=== PATIENT | female | born 1985 | race Caucasian/White ===

== ENCOUNTER 2021-03-05 15:50 | Emergency (ER) | payer OTHER, SELFPAY ==
[2021-03-05 15:54] VITALS: PULSE 95; RESP 22; TEMP 36.6; O2SAT 100
[2021-03-05] MEDS: ONDANSETRON 4 MG ODT SL (16:31)
[2021-03-05 16:46] LABS: Add Manual Diff / Slide Review NO; Basophils Absolute Auto 0 /uL (0-100); Basophils Percent Auto 0.7 % (0-2); Eosinophils Absolute Auto 100 /uL (0-450); Eosinophils Percent Auto 1.3 % (2-4); Hematocrit 39.9 % (36-46); Hemoglobin 13.2 g/dL (12.0-16.0); Lymphocytes Absolute Auto 1300 /uL (1100-4500); Lymphocytes Percent Auto 19.7 % (25-40); Mean Corpuscular HGB Conc 33.1 % (30-36); Mean Corpuscular Hemoglobin 29.9 PG (26-34); Mean Corpuscular Volume 90.2 fL (80-100); Monocytes Absolute Auto 600 /uL (0-900); Monocytes Percent Auto 8.8 % (3-14); Neutrophils Absolute Auto 4500 /uL (1500-7000); Neutrophils Percent Auto 69.5 % (50-75); Platelet Count 327 X10^3/uL (150-400); Red Blood Cell Count 4.42 X10^6/uL (4.0-5.2); Red Cell Distribution Width 13.1 % (11.6-14.8); White Blood Cell Count 6.4 X10^3/uL (4.5-11.0)
--- NOTE | 2021-03-05 16:53 | DI.CT.S_ITS ---
PROCEDURE: CT ABDOMEN PELVIS W CON INDICATIONS: RUQ, LUQ pain, N/V/D TECHNIQUE: After the administration of intravenous contrast, axial sections acquired from the lung bases to the pubic symphysis. Coronal and sagittal reformats were performed. For radiation dose reduction, the following was used: automated exposure control, adjustment of mA and/or kV according to patient size. COMPARISON: None. FINDINGS: Image quality: Excellent. Lung bases: Lung bases are clear. Heart: No significant findings. ABDOMEN: Liver: Unremarkable. Gallbladder: Unremarkable. Biliary ducts: Unremarkable. Pancreas: Unremarkable. Spleen: Unremarkable. Adrenal Glands: Unremarkable. Kidneys and Ureters: Kidneys are symmetric in size and enhancement, and there is no obstructive uropathy. No perinephric inflammatory changes. Ureters are normal in course and caliber. Stomach and Bowel: Stomach appears unremarkable. There is diffuse, mild circumferential wall thickening of the entire colon which is filled with fluid and fecal material. Mild pericolonic inflammation predominantly in the distal sigmoid colon. Multiple fluid-filled loops of small bowel seen throughout the abdomen most pronounced in the left upper abdomen. No suspicious wall thickening of the small bowel. Nonobstructive bowel gas pattern. The appendix is filled with fluid but otherwise normal in caliber. Peritoneum: Scattered free fluid in the lower abdomen and pelvis. No organized fluid collection seen. Ventral Wall: No hernia. Abdominal Nodes: Multiple retroperitoneal and mesenteric lymph nodes which are more notable for number rather than size and likely reactive in etiology. Vessels: Aorta and inferior vena cava are normal in size. PELVIS: Pelvic Organs: Unremarkable. Bladder: Unremarkable. Pelvic Nodes: No enlarged lymph nodes. Miscellaneous: No inguinal hernias are seen. Bones: Unremarkable. IMPRESSION: 1. Nonobstructive bowel gas pattern with mild circumferential wall thickening of the entire colon and mild pericolonic inflammatory stranding of the distal sigmoid colon. There is also a long segment of fluid-filled small bowel with minimal wall prominence in the left upper quadrant. Findings may represent enteritis/colitis secondary to infectious/inflammatory process. Small amount of reactive pelvic free fluid. 2. Multiple scattered retroperitoneal and mesenteric lymph nodes, likely reactive in etiology. Dictated by: Ildefonso Colbert M.D. on 03/05/2021 at 18:53 Approved by: Ildefonso Colbert M.D. on 03/05/2021 at 19:02
--- NOTE | 2021-03-05 16:56 | DI.US.S_ITS ---
PROCEDURE: US ABDOMEN COMPLETE INDICATIONS: RIGHT AND LEFT UPPER QUADRANT PAIN TECHNIQUE: Real-time scanning was performed of the abdominal and retroperitoneal organs, with image documentation. COMPARISON: [facility], US, ABDOMEN COMPLETE, 07/12/2010, 9:32. FINDINGS: Liver: Liver is normal in size and homogeneous in echotexture. Gallbladder: Sonolucent without evidence cholelithiasis, gallbladder wall thickening or pericholecystic fluid. No sonographic Bronson sign. Biliary ducts: Intrahepatic bile ducts are non-dilated. Extrahepatic bile duct caliber measures 4 mm. Normal is 6-7 mm or less in diameter, or 10 mm or less post-cholecystectomy. Pancreas: Visualized portions of the pancreas are sonographically normal. Spleen: Spleen is normal in size and homogeneous in echotexture. Kidneys: Kidneys are normal in size and echotexture. Right kidney measures 12.3 cm long; left kidney measures 12.0 cm long. No hydronephrosis or nephrolithiasis. No solid masses. Aorta: Visualized aorta is normal in caliber at less than 3 cm. Iliacs: Proximal common iliac arteries are normal in caliber at less than 2.5 cm. IVC: Intrahepatic inferior vena cava is patent. Miscellaneous: No free abdominal fluid. IMPRESSION: Normal ultrasound the abdomen Approved by: Donte Banuelos M.D. on 03/05/2021 at 18:46
[2021-03-05 17:02] VITALS: BP 116/65; PULSE 89; RESP 18; O2SAT 100
--- NOTE | 2021-03-05 17:11 | ED.ABDPAIN ---
HPI - Abdominal Pain <Mike Trinh PA-C - Last Filed: 03/12/21 09:08> General Chief Complaint: Abdominal Pain Stated Complaint: STOMACH ACHE DIARRHEA HEADACHE Time Seen by Provider: 03/05/21 16:08 Source: patient Mode of arrival: Ambulatory History of Present Illness HPI narrative: 35-year-old female with past medical history hiatal hernia, Baptiste's esophagus, status post partial hysterectomy presents to the ED with 3 days of upper abdominal pain, nausea, vomiting, diarrhea. Patient states she has had 3 episodes of vomiting thus far, able to tolerate fluids, but is feeling lightheaded. Endorses upper abdominal pain, nausea, diarrhea. Denies hematochezia, melena, hematemesis, coffee-ground emesis. Denies dysuria. Patient denies fever, endorses chills. Denies chest pain, shortness of breath. Related Data Home Medications Medication Instructions Recorded Confirmed Ethinyl Estradiol/Norgestima 1 tab PO Q DAY #0 03/19/11 (ORTHO TRI-CYCLEN LO) Previous Rx's Medication Instructions Recorded ondansetron HCl 4 mg tablet 4 mg PO Q8H PRN #7 tab 03/05/21 (Zofran) Allergies Allergy/AdvReac Type Severity Reaction Status Date / Time No Known Drug Allergies Allergy Verified 03/05/21 16:29 Review of Systems <Mike Trinh PA-C - Last Filed: 03/12/21 09:08> Constitutional Constitutional: Denies chills, Denies fatigue, Denies fever(s), Denies frequent falls, Denies lethargy, Reports poor appetite and Denies weakness Eyes Eyes: Denies change in vision, Denies eye discharge, Denies irritation and Denies loss of vision ENT Ears, Nose, Mouth, and Throat: Denies change in voice, Denies dizziness, Denies neck pain, Denies sore throat and Denies throat swelling Cardiovascular Cardiovascular: Denies chest pain, Denies irregular heart rhythm, Denies lightheadedness, Denies palpitations, Denies dyspnea, Denies dyspnea on exertion and Denies orthopnea Respiratory Respiratory: Denies cough, Denies dyspnea, Denies dyspnea on exertion and Denies wheezing Gastrointestinal Gastrointestinal: Reports abdominal pain, Denies change in bowel habits, Denies diarrhea, Reports nausea and Reports vomiting Musculoskeletal Musculoskeletal: Denies neck pain and Denies numbness Integumentary/Breasts Skin/Breast: Denies pruritus, Denies erythema, Denies rash and Denies wounds Neurologic Neurologic: Denies behavioral changes, Denies confusion, Denies dizziness, Denies frequent falls, Denies loss of vision, Denies numbness and Denies weakness Psychiatric Psychiatric: Denies anxiety, Denies behavioral changes, Denies confusion, Denies depression, Denies homicidal ideation and Denies suicidal ideation Endocrine Endocrine: Denies fatigue, Denies flushing and Denies palpitations Hematologic/Lymphatic Hematologic/Lymphatic: Denies easy bruising Allergic/Immunologic Allergic/Immunologic: Denies urticaria, Denies throat swelling and Denies wheezing Patient History <Mike Trinh PA-C - Last Filed: 03/12/21 09:08> Social History Smoking Status: Current every day smoker Smoking Status: Current every day smoker tobacco type: vaping alcohol intake frequency: holidays/special occasions only Exam <Mike Trinh PA-C - Last Filed: 03/12/21 09:08> Initial Vital Signs Initial Vital Signs: Vital Signs Temperature 97.8 F 03/05/21 15:54 Pulse Rate 95 H 03/05/21 15:54 Respiratory Rate 22 03/05/21 15:54 Pulse Oximetry 100 03/05/21 15:54 Const General: cooperative HENMT Head: normocephalic and atraumatic Ears: external ears normal and TM's normal bilaterally Nose: external nose normal and No nasal discharge Face and sinus: sinuses nontender, face symmetric, no sinus tenderness and No dry mucous membranes Mouth: oral mucosae normal and moist mucous membranes Teeth and gingiva: dentition normal Throat: tonsils normal and uvula midline Eyes General: appearance normal, both eyes and all related structures Eyelids: eyelids normal Conjunctivae: conjunctivae normal Sclera: sclerae normal Pupils: PERRL EOM: EOM intact bilaterally Neck Neck: normal visual inspection, trachea midline, No lymphadenopathy, No midline deformity and No JVD Lymphatic: No lymphedema Chest Chest: normal inspection of the chest Resp Effort & Inspection: normal respiratory effort, able to speak in complete sentences, no respiratory distress and no use of accessory muscles Auscultation: clear to auscultation bilaterally, no rales, no rhonchi and no wheezes Cardio Rate: regular rate Rhythm: regular rhythm Heart Sounds: no click, no gallops, no murmurs and no rubs Pulses: normal peripheral pulses GI Inspection: non-distended Palpation: soft, no hepatosplenomegaly, No guarding and No pulsatile mass Auscultation: normal bowel sounds Other: Abdomen soft, non-distended. TTP on RUQ, LUQ. No rebound, gaurding Back/Spine/Pelvis Back: No CVA tenderness Cervical Spine: cervical ROM normal and No pain with cervical ROM Thoracic/Lumbar Spine: thoracic and lumbar spine normal to inspection Skin General: no rashes or lesions noted, No jaundice and No petechiae Neuro General: patient alert, patient oriented x3, gait normal and no focal motor deficits Speech: speech normal Extrem General: full ROM, no clubbing, cyanosis or edema, no pedal edema and no calf tenderness Psych Appearance: well kempt Mental Status: mental status grossly normal Attitude: cooperative Thought Content: normal and suicidality Judgment: judgment good <Angelica Delong DO - Last Filed: 03/16/21 21:50> Initial Vital Signs Initial Vital Signs: Vital Signs Temperature 97.8 F 03/05/21 15:54 Pulse Rate 95 H 03/05/21 15:54 Respiratory Rate 22 03/05/21 15:54 Pulse Oximetry 100 03/05/21 15:54 Course <Mike Trinh PA-C - Last Filed: 03/12/21 09:08> Course Course Narrative: labs within normal limits. Ultrasound abdomen negative for acute findings. CT abdomen pelvis with findings of generalized enteritis, colitis, likely secondary to diarrhea. Patient's symptoms improved with Zofran, Toradol, IVF. Will discharge home with ED return precautions, PCP follow-up. Orders Ordered: Discontinued Medications Al Hydrox/Mg Hydrox/Simethicone 20 ml/ Lidocaine HCl 15 ml 0 ml PO NOW ONE Stop: 03/05/21 16:58 Last Admin: 03/05/21 17:34 Dose: 35 ml Documented by: HIRO Famotidine (Famotidine 20 Mg/2 Ml Vial) 20 mg IV NOW ASNTY Sodium Chloride (Normal Saline 0.9%) 1,000 mls @ 1,000 mls/hr IV BOLUS ONE Stop: 03/05/21 17:53 Last Infusion: 03/05/21 18:32 Dose: 0 mls/hr Documented by: Admin: 03/05/21 17:33 Dose: 1,000 mls/hr Documented by: HIRO Ketorolac Tromethamine (Ketorolac 30 Mg/Ml Vial) 15 mg IV NOW ONE Stop: 03/05/21 16:56 Last Admin: 03/05/21 17:34 Dose: 15 mg Documented by: HIRO Ondansetron HCl (Ondansetron 4 Mg Odt) 4 mg SL NOW ONE Stop: 03/05/21 16:29 Last Admin: 03/05/21 16:31 Dose: 4 mg Documented by: HIRO Vital Signs Vital signs: Vital Signs - 8 hr 03/05/21 15:54 03/05/21 17:02 Temperature 97.8 F Pulse Rate 95 H 89 Respiratory Rate 22 18 Blood Pressure 116/65 Pulse Oximetry 100 100 <Angelica Delong DO - Last Filed: 03/16/21 21:50> Orders Ordered: Discontinued Medications Al Hydrox/Mg Hydrox/Simethicone 20 ml/ Lidocaine HCl 15 ml 0 ml PO NOW ONE Stop: 03/05/21 16:58 Last Admin: 03/05/21 17:34 Dose: 35 ml Documented by: HIRO Famotidine (Famotidine 20 Mg/2 Ml Vial) 20 mg IV NOW SANTY Sodium Chloride (Normal Saline 0.9%) 1,000 mls @ 1,000 mls/hr IV BOLUS ONE Stop: 03/05/21 17:53 Last Infusion: 03/05/21 18:32 Dose: 0 mls/hr Documented by: Admin: 03/05/21 17:33 Dose: 1,000 mls/hr Documented by: HIRO Ketorolac Tromethamine (Ketorolac 30 Mg/Ml Vial) 15 mg IV NOW ONE Stop: 03/05/21 16:56 Last Admin: 03/05/21 17:34 Dose: 15 mg Documented by: HIRO Ondansetron HCl (Ondansetron 4 Mg Odt) 4 mg SL NOW ONE Stop: 03/05/21 16:29 Last Admin: 03/05/21 16:31 Dose: 4 mg Documented by: HIRO Vital Signs Vital signs: Vital Signs - 8 hr 03/05/21 15:54 03/05/21 17:02 Temperature 97.8 F Pulse Rate 95 H 89 Respiratory Rate 22 18 Blood Pressure 116/65 Pulse Oximetry 100 100 MDM - Abdominal Pain <Hyma CLIF Trinh - Last Filed: 03/12/21 09:08> Lab Data Lab results narrative: Labs within normal limits Result diagrams: 03/05/21 16:25 03/05/21 16:25 Labs: Lab Results 03/05/21 03/05/21 03/05/21 Range/Units 16:25 16:25 17:23 WBC 6.4 (4.5-11.0) X10^3/uL RBC 4.42 (4.0-5.2) X10^6/uL Hgb 13.2 (12.0-16.0) g/dL Hct 39.9 (36-46) % MCV 90.2 (80-100) fL MCH 29.9 (26-34) PG MCHC 33.1 (30-36) % RDW 13.1 (11.6-14.8) % Plt Count 327 (150-400) X10^3/uL Neut % (Auto) 69.5 (50-75) % Lymph % (Auto) 19.7 L (25-40) % [place] % (Auto) 8.8 (3-14) % Eos % (Auto) 1.3 L (2-4) % Baso % (Auto) 0.7 (0-2) % Neut # (Auto) 4500 (0789-3779) /uL Lymph # (Auto) 1300 (7263-2481) /uL [place] # (Auto) 600 (0-900) /uL Eos # (Auto) 100 (0-450) /uL Baso # (Auto) 0 (0-100) /uL Sodium 138 (137-145) mmol/L Potassium 3.3 L (3.4-5.1) mmol/L Chloride 100 (98-107) mmol/L Carbon Dioxide 28 (22-32) mmol/L BUN 7 (7-17) mg/dL Creatinine 0.60 (0.52-1.04) mg/dL Estimated GFR > 60.0 (>60) mL/min BUN/Creatinine Ratio 11.7 (6-22) Glucose 86 (70-100) mg/dL Calcium 9.1 (8.4-10.2) mg/dL Total Bilirubin 0.3 (0.2-1.3) mg/dL AST 26 (14-36) IU/L ALT 21 (<35) IU/L Alkaline Phosphatase 62 (38-126) U/L Total Protein 6.9 (6.3-8.2) g/dL Albumin 4.2 (3.5-5.0) g/dL Globulin 2.7 (1.7-4.1) g/dL Albumin/Globulin Ratio 1.6 (1.0-2.8) Lipase 43 (23-300) U/L Urine RBC (0-5/HPF) Urine WBC (0-5/HPF) Ur Squamous Epith Cells (0-5/HPF) Ur Transition Epith Cell (0-5/HPF) Urine Bacteria (None) Urine Mucus (Negative) Ur Culture Indicated? Urine Test Negative (Negative) 03/05/21 Range/Units 17:23 WBC (4.5-11.0) X10^3/uL RBC (4.0-5.2) X10^6/uL Hgb (12.0-16.0) g/dL Hct (36-46) % MCV (80-100) fL MCH (26-34) PG MCHC (30-36) % RDW (11.6-14.8) % Plt Count (150-400) X10^3/uL Neut % (Auto) (50-75) % Lymph % (Auto) (25-40) % [place] % (Auto) (3-14) % Eos % (Auto) (2-4) % Baso % (Auto) (0-2) % Neut # (Auto) (8837-9446) /uL Lymph # (Auto) (3812-2863) /uL [place] # (Auto) (0-900) /uL Eos # (Auto) (0-450) /uL Baso # (Auto) (0-100) /uL Sodium (137-145) mmol/L Potassium (3.4-5.1) mmol/L Chloride (98-107) mmol/L Carbon Dioxide (22-32) mmol/L BUN (7-17) mg/dL Creatinine (0.52-1.04) mg/dL Estimated GFR (>60) mL/min BUN/Creatinine Ratio (6-22) Glucose (70-100) mg/dL Calcium (8.4-10.2) mg/dL Total Bilirubin (0.2-1.3) mg/dL AST (14-36) IU/L ALT (<35) IU/L Alkaline Phosphatase (38-126) U/L Total Protein (6.3-8.2) g/dL Albumin (3.5-5.0) g/dL Globulin (1.7-4.1) g/dL Albumin/Globulin Ratio (1.0-2.8) Lipase (23-300) U/L Urine RBC 10-30/hpf H (0-5/HPF) Urine WBC 1-5/hpf (0-5/HPF) Ur Squamous Epith Cells 1-5 /hpf (0-5/HPF) Ur Transition Epith Cell 1-5/hpf (0-5/HPF) Urine Bacteria Moderate (10-30) H (None) Urine Mucus 2+ H (Negative) Ur Culture Indicated? Specimen cultured Urine Test (Negative) Point of care testing: Urine Dip Bedside Urine Glucose Negative Bedside Urine Bilirubin - Negative Bedside Urine Ketone +++ 80 Urine Specific [place] 1.025 Bedside Urine Occult Blood +++ Bedside Urine pH 6.0 Bedside Urine Protein + 30 Bedside Urine Urobilinogen - Negative Bedside Urine Nitrite - Negative Bedside Urine Leukocytes - Negative Esterase Imaging Data CT scan - abdomen/pelvis: Radiologist's Impression: PROCEDURE: CT ABDOMEN PELVIS W CON INDICATIONS: RUQ, LUQ pain, N/V/D TECHNIQUE: After the administration of intravenous contrast, axial sections acquired from the lung bases to the pubic symphysis. Coronal and sagittal reformats were performed. For radiation dose reduction, the following was used: automated exposure control, adjustment of mA and/or kV according to patient size. COMPARISON: None. FINDINGS: Image quality: Excellent. Lung bases: Lung bases are clear. Heart: No significant findings. ABDOMEN: Liver: Unremarkable. Gallbladder: Unremarkable. Biliary ducts: Unremarkable. Pancreas: Unremarkable. Spleen: Unremarkable. Adrenal Glands: Unremarkable. Kidneys and Ureters: Kidneys are symmetric in size and enhancement, and there is no obstructive uropathy. No perinephric inflammatory changes. Ureters are normal in course and caliber. Stomach and Bowel: Stomach appears unremarkable. There is diffuse, mild circumferential wall thickening of the entire colon which is filled with fluid and fecal material. Mild pericolonic inflammation predominantly in the distal sigmoid colon. Multiple fluid-filled loops of small bowel seen throughout the abdomen most pronounced in the left upper abdomen. No suspicious wall thickening of the small bowel. Nonobstructive bowel gas pattern. The appendix is filled with fluid but otherwise normal in caliber. Peritoneum: Scattered free fluid in the lower abdomen and pelvis. No organized fluid collection seen. Ventral Wall: No hernia. Abdominal Nodes: Multiple retroperitoneal and mesenteric lymph nodes which are more notable for number rather than size and likely reactive in etiology. Vessels: Aorta and inferior vena cava are normal in size. PELVIS: Pelvic Organs: Unremarkable. Bladder: Unremarkable. Pelvic Nodes: No enlarged lymph nodes. Miscellaneous: No inguinal hernias are seen. Bones: Unremarkable. IMPRESSION: 1. Nonobstructive bowel gas pattern with mild circumferential wall thickening of the entire colon and mild pericolonic inflammatory stranding of the distal sigmoid colon. There is also a long segment of fluid-filled small bowel with minimal wall prominence in the left upper quadrant. Findings may represent enteritis/colitis secondary to infectious/inflammatory process. Small amount of reactive pelvic free fluid. 2. Multiple scattered retroperitoneal and mesenteric lymph nodes, likely reactive in etiology. Dictated by: Ildefonso Colbert M.D. on 03/05/2021 at 18:53 Approved by: Ildefonso Colbert M.D. on 03/05/2021 at 19:02 US - abdomen: Radiologist's Impression: PROCEDURE:? US ABDOMEN COMPLETE ? INDICATIONS:? RIGHT AND LEFT UPPER QUADRANT PAIN ? TECHNIQUE:? Real-time scanning was performed of the abdominal and retroperitoneal organs, with image documentation.? ? COMPARISON:? [facility], , ABDOMEN COMPLETE, 07/12/2010, 9:32. ? FINDINGS:? ? Liver:? Liver is normal in size and homogeneous in echotexture.? ? Gallbladder:? Sonolucent without evidence cholelithiasis, gallbladder wall thickening or pericholecystic fluid.? No sonographic Bronson sign.? ? ? Biliary ducts:? Intrahepatic bile ducts are non-dilated.? Extrahepatic bile duct caliber measures 4 mm.? Normal is 6-7 mm or less in diameter, or 10 mm or less post-cholecystectomy.? ? Pancreas:? Visualized portions of the pancreas are sonographically normal.? ? Spleen:? Spleen is normal in size and homogeneous in echotexture.? ? Kidneys:? Kidneys are normal in size and echotexture.? Right kidney measures 12.3 cm long; left kidney measures 12.0 cm long.? No hydronephrosis or nephrolithiasis.? No solid masses.? ? Aorta:? Visualized aorta is normal in caliber at less than 3 cm.? ? Iliacs:? Proximal common iliac arteries are normal in caliber at less than 2.5 cm.? ? IVC:? Intrahepatic inferior vena cava is patent.? ? Miscellaneous:? No free abdominal fluid.? ? ? IMPRESSION:? Normal ultrasound the abdomen ? Approved by: Donte Banuelos M.D. on 03/05/2021 at 18:46? MDM Narrative Medical decision making narrative: 35-year-old female with past medical history hiatal hernia, Baptiste's esophagus, status post partial hysterectomy presents to the ED with 3 days of upper abdominal pain, nausea, vomiting, diarrhea. Concern for cholecystitis versus choledocholithiasis versus pancreatitis versus gastritis versus GERD versus gastroenteritis versus ectopic . Will order labs, lipase, CT abdomen pelvis, ultrasound right upper quadrant, hCG. Will give Zofran, IV fluids, Toradol for symptoms. Will reassess. <Angelica Delnog, DO - Last Filed: 03/16/21 21:50> Lab Data Labs: Lab Results 03/05/21 03/05/21 03/05/21 Range/Units 16:25 16:25 17:23 WBC 6.4 (4.5-11.0) X10^3/uL RBC 4.42 (4.0-5.2) X10^6/uL Hgb 13.2 (12.0-16.0) g/dL Hct 39.9 (36-46) % MCV 90.2 (80-100) fL MCH 29.9 (26-34) PG MCHC 33.1 (30-36) % RDW 13.1 (11.6-14.8) % Plt Count 327 (150-400) X10^3/uL Neut % (Auto) 69.5 (50-75) % Lymph % (Auto) 19.7 L (25-40) % [place] % (Auto) 8.8 (3-14) % Eos % (Auto) 1.3 L (2-4) % Baso % (Auto) 0.7 (0-2) % Neut # (Auto) 4500 (4020-8246) /uL Lymph # (Auto) 1300 (6630-8021) /uL [place] # (Auto) 600 (0-900) /uL Eos # (Auto) 100 (0-450) /uL Baso # (Auto) 0 (0-100) /uL Sodium 138 (137-145) mmol/L Potassium 3.3 L (3.4-5.1) mmol/L Chloride 100 (98-107) mmol/L Carbon Dioxide 28 (22-32) mmol/L BUN 7 (7-17) mg/dL Creatinine 0.60 (0.52-1.04) mg/dL Estimated GFR > 60.0 (>60) mL/min BUN/Creatinine Ratio 11.7 (6-22) Glucose 86 (70-100) mg/dL Calcium 9.1 (8.4-10.2) mg/dL Total Bilirubin 0.3 (0.2-1.3) mg/dL AST 26 (14-36) IU/L ALT 21 (<35) IU/L Alkaline Phosphatase 62 (38-126) U/L Total Protein 6.9 (6.3-8.2) g/dL Albumin 4.2 (3.5-5.0) g/dL Globulin 2.7 (1.7-4.1) g/dL Albumin/Globulin Ratio 1.6 (1.0-2.8) Lipase 43 (23-300) U/L Urine RBC (0-5/HPF) Urine WBC (0-5/HPF) Ur Squamous Epith Cells (0-5/HPF) Ur Transition Epith Cell (0-5/HPF) Urine Bacteria (None) Urine Mucus (Negative) Ur Culture Indicated? Urine Test Negative (Negative) 03/05/21 Range/Units 17:23 WBC (4.5-11.0) X10^3/uL RBC (4.0-5.2) X10^6/uL Hgb (12.0-16.0) g/dL Hct (36-46) % MCV (80-100) fL MCH (26-34) PG MCHC (30-36) % RDW (11.6-14.8) % Plt Count (150-400) X10^3/uL Neut % (Auto) (50-75) % Lymph % (Auto) (25-40) % [place] % (Auto) (3-14) % Eos % (Auto) (2-4) % Baso % (Auto) (0-2) % Neut # (Auto) (7893-0694) /uL Lymph # (Auto) (6203-2050) /uL [place] # (Auto) (0-900) /uL Eos # (Auto) (0-450) /uL Baso # (Auto) (0-100) /uL Sodium (137-145) mmol/L Potassium (3.4-5.1) mmol/L Chloride (98-107) mmol/L Carbon Dioxide (22-32) mmol/L BUN (7-17) mg/dL Creatinine (0.52-1.04) mg/dL Estimated GFR (>60) mL/min BUN/Creatinine Ratio (6-22) Glucose (70-100) mg/dL Calcium (8.4-10.2) mg/dL Total Bilirubin (0.2-1.3) mg/dL AST (14-36) IU/L ALT (<35) IU/L Alkaline Phosphatase (38-126) U/L Total Protein (6.3-8.2) g/dL Albumin (3.5-5.0) g/dL Globulin (1.7-4.1) g/dL Albumin/Globulin Ratio (1.0-2.8) Lipase (23-300) U/L Urine RBC 10-30/hpf H (0-5/HPF) Urine WBC 1-5/hpf (0-5/HPF) Ur Squamous Epith Cells 1-5 /hpf (0-5/HPF) Ur Transition Epith Cell 1-5/hpf (0-5/HPF) Urine Bacteria Moderate (10-30) H (None) Urine Mucus 2+ H (Negative) Ur Culture Indicated? Specimen cultured Urine Test (Negative) Point of care testing: Urine Dip Bedside Urine Glucose Negative Bedside Urine Bilirubin - Negative Bedside Urine Ketone +++ 80 Urine Specific [place] 1.025 Bedside Urine Occult Blood +++ Bedside Urine pH 6.0 Bedside Urine Protein + 30 Bedside Urine Urobilinogen - Negative Bedside Urine Nitrite - Negative Bedside Urine Leukocytes - Negative Esterase Discharge Plan Departure Patient Disposition: Home Clinical Impression: Abdominal pain Qualifiers: Abdominal location: upper abdomen, unspecified Qualified Code(s): R10.10 - Upper abdominal pain, unspecified Instructions: DI for Colitis Activity Restrictions/Additional Instructions: You were evaluated in the ED today for abdominal pain, nausea, vomiting, diarrhea. Your labs, abdominal ultrasound were normal. Your CT abdomen pelvis showed some enteritis or colitis which is likely due to the diarrhea. Continue to hydrate yourself by drinking lots of water. Return to the ED if you are unable to keep down any fluids, your symptoms worsen, you experience fever, chills. Prescriptions: New ondansetron HCl [Zofran] 4 mg tablet 4 mg PO Q8H PRN (Reason: nausea and vomiting) Qty: 7 RF: 0 No Action Ethinyl Estradiol/Norgestima (ORTHO TRI-CYCLEN LO) 1 tab PO Q DAY Qty: 0 RF: 0 <Angelica Delong DO - Last Filed: 03/16/21 21:50> Cosign ED Attending Elvin Attestation: I was immediately available in the department for consultation. Documentation has been reviewed. I agree with assessment and plan.
[2021-03-05] MEDS: SODIUM CHLORIDE 0.9% 1,000 ML 1000 ML IV (17:33)
[2021-03-05] MEDS: KETOROLAC 30 MG/ML VIAL 15 MG IV (17:34)
[2021-03-05] MEDS: MAG HYDROX/ALUMINUM/SIMETH SUS 20 ML, LIDOCAINE VISCOUS 2% 15 ML PO (17:34)
[2021-03-05 17:38] LABS: Alanine Aminotransferase 21 IU/L (<35); Albumin 4.2 g/dL (3.5-5.0); Albumin Globulin Ratio 1.6 (1.0-2.8); Alkaline Phosphatase 62 U/L (38-126); Aspartate Aminotransferase 26 IU/L (14-36); BUN Creatinine Ratio 11.7 (6-22); Bilirubin Total 0.3 mg/dL (0.2-1.3); Blood Urea Nitrogen 7 mg/dL (7-17); Calcium 9.1 mg/dL (8.4-10.2); Carbon Dioxide 28 mmol/L (22-32); Chloride 100 mmol/L (98-107); Estimated Glomerular Filt Rate > 60.0 mL/min (>60); Globulin 2.7 g/dL (1.7-4.1); Glucose 86 mg/dL (70-100); HEMOLYSIS < 15 (0-50); Lipase 43 U/L (23-300); Potassium 3.3 mmol/L (3.4-5.1); Sodium 138 mmol/L (137-145); Total Protein 6.9 g/dL (6.3-8.2)
[2021-03-05 17:53] LABS: Pregnancy Test Urine Negative (Negative)
[2021-03-05 18:40] LABS: Bacteria Urine Moderate (10-30); Culture Indicated Urine Specimen Cultured; Mucus Urine 2+ (Negative); RBC Urine 10-30/HPF (0-5/HPF); Squamous Epithelial Cell Urine 1-5 /HPF (0-5/HPF); Transitional Epi Cells Urine 1-5/HPF (0-5/HPF); WBC Urine 1-5/HPF (0-5/HPF)
[2021-03-05 19:29] VITALS: BP 97/60; PULSE 80; O2SAT 93
[2021-03-05 19:32] VITALS: BP 97/60; PULSE 80; RESP 16; O2SAT 99
[2021-03-05 20:25] VITALS: BP 104/70; PULSE 83; O2SAT 99
== END 2021-03-05 20:33 | disposition home or self-care (01) ==
PROVIDERS: Emergency Medicine; Emergency Provider Student in an Organized Health Care Education/Training Program
DX: R10.10 Upper abdominal pain, unspecified (principal); R11.2 Nausea with vomiting, unspecified; R19.7 Diarrhea, unspecified
CPT/HCPCS: 36415; 74177; 76700; 80053; 81003; 81015; 81025; 83690; 85025; 87086; 96361; 96374; 99284; J1885; Q9967

== ENCOUNTER 2023-10-12 16:06 | Emergency (ER) | payer OTHER, SELFPAY ==
[2023-10-12 16:09] VITALS: BP 131/90; PULSE 84; RESP 16; TEMP 37.1; O2SAT 98; BMI 21.7
--- NOTE | 2023-10-12 16:16 | DI.RAD.S_ITS ---
PROCEDURE: XR ELBOW RT MIN 3V INDICATIONS: fall and unable to extend forearm abrasion at elbow. TECHNIQUE: 3 views of the elbow were acquired. COMPARISON: None. FINDINGS: Bones: No fractures or dislocations. No suspicious bony lesions. Soft tissues: No elbow joint effusion. No suspicious soft tissue calcifications. IMPRESSION: No acute bony abnormality or significant joint effusion. Approved by: Donte Banuelos M.D. on 10/12/2023 at 16:54
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
[2023-10-12 19:25] VITALS: BP 124/76; PULSE 74; RESP 18; O2SAT 99
== END 2023-10-12 19:16 | disposition home or self-care (01) ==
PROVIDERS: Emergency Provider Physician Assistant Medical
DX: S50.01XA Contusion of right elbow, initial encounter (principal); S30.0XXA Contusion of lower back and pelvis, initial encounter; V00.831A Fall from motorized mobility scooter, initial encounter
CPT/HCPCS: 72220; 73080; 99283

== ENCOUNTER 2023-10-22 06:46 | Emergency (ER) | payer OTHER, SELFPAY ==
[2023-10-22 06:51] VITALS: BP 140/86; PULSE 81; RESP 16; TEMP 36.6; O2SAT 98; BMI 21.7
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
[2023-10-22 07:11] VITALS: BP 140/86; PULSE 81
[2023-10-22] MEDS: PROCHLORPERAZINE 10 MG/2 ML VIAL IV (07:11)
[2023-10-22] MEDS: SODIUM CHLORIDE 0.9% 1,000 ML 1000 ML IV (07:11)
[2023-10-22] MEDS: diphenhydrAMINE 50 MG/ML VIAL 25 MG IV (07:13)
[2023-10-22] MEDS: KETOROLAC 30 MG/ML VIAL IV (07:14)
[2023-10-22] MEDS: DEXAMETHASONE 10 MG/ML VIAL IV (07:16)
[2023-10-22 07:31] VITALS: BP 134/90; PULSE 76; O2SAT 99
[2023-10-22 08:00] VITALS: BP 113/60; PULSE 77; O2SAT 100
[2023-10-22 08:30] VITALS: BP 117/81; PULSE 71; O2SAT 100
== END 2023-10-22 08:43 | disposition home or self-care (01) ==
PROVIDERS: Emergency Provider Emergency Medicine
DX: R51.9 Headache, unspecified (principal); M54.2 Cervicalgia; H53.8 Other visual disturbances; R42 Dizziness and giddiness
CPT/HCPCS: 36415; 96374; 96375; 99283; 99284; J0780; J1100; J1200; J1885

== ENCOUNTER 2023-10-25 10:07 | Emergency (ER) | payer OTHER, SELFPAY ==
[2023-10-25] VITALS (51 sets, daily range): BP systolic 111–152; BP diastolic 72–98; PULSE 73–100; RESP 14–18; TEMP 36.8–37; O2SAT 96–100; BMI 21.7
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
[2023-10-25 11:40] LABS: Add Manual Diff / Slide Review NO; Basophils Absolute Auto 100 /uL (0-100); Basophils Percent Auto 0.6 % (0-2); Eosinophils Absolute Auto 100 /uL (0-450); Hematocrit 42.1 % (36-46); Hemoglobin 13.9 g/dL (12.0-16.0); Lymphocytes Absolute Auto 2200 /uL (1100-4500); Lymphocytes Percent Auto 18.5 % (25-40); Mean Corpuscular Hemoglobin 30.1 PG (26-34); Mean Corpuscular Volume 91.2 fL (80-100); Monocytes Absolute Auto 600 /uL (0-900); Monocytes Percent Auto 5.1 % (3-14); Neutrophils Absolute Auto 8900 /uL (1500-7000); Neutrophils Percent Auto 74.8 % (50-75); Platelet Count 474 X10^3/uL (150-400); Red Blood Cell Count 4.62 X10^6/uL (4.0-5.2); Red Cell Distribution Width 12.8 % (11.6-14.8); White Blood Cell Count 11.9 X10^3/uL (4.5-11.0)
[2023-10-25] MEDS: KETOROLAC 30 MG/ML VIAL 15 MG IV (11:40)
[2023-10-25] MEDS: diazePAM 10 MG/2 ML SYRINGE 5 MG IV (11:41)
[2023-10-25] MEDS: SODIUM CHLORIDE 0.9% 1,000 ML 1000 ML IV (11:41)
--- NOTE | 2023-10-25 11:42 | DI.CT.S_ITS ---
PROCEDURE: CT CERVICAL SPINE WO CON INDICATIONS: right headache, neck pain, fall 10/12/23 TECHNIQUE: Noncontrast 3 mm thick sections acquired from the skull base to the T4 level. Sagittal and coronal reformats were then constructed. For radiation dose reduction, the following was used: automated exposure control, adjustment of mA and/or kV according to patient size. COMPARISON: None. FINDINGS: Image quality: Excellent. Bones: No fractures or dislocations. Visualized superior ribs are intact. Soft tissues: Prevertebral soft tissues are normal in thickness. No paravertebral hematomas. No apical pneumothoraces. IMPRESSION: No displaced fracture or traumatic subluxation. Dictated by: Robinson Herrera M.D. on 10/25/2023 at 12:22 Approved by: Robinson Herrera M.D. on 10/25/2023 at 12:23
--- NOTE | 2023-10-25 11:42 | DI.CT.S_ITS ---
PROCEDURE: CT HEAD/BRAIN WO CON INDICATIONS: headache, neck pain, fall 10/12/23 TECHNIQUE: Noncontrast 4.5 mm thick angled axial sections acquired from the foramen magnum to the vertex, with coronal and sagittal reformats. For radiation dose reduction, the following was used: automated exposure control, adjustment of mA and/or kV according to patient size. COMPARISON: None. FINDINGS: Image quality: Diagnostic. CSF spaces: Basal cisterns are patent. No extra-axial fluid collections. The ventricles are symmetric in size and shape. Brain: No intracranial bleeds or masses. There is cerebral volume loss for age, with resultant ventricular and sulcal prominence. There are periventricular and deep white matter chronic small vessel ischemic changes. There is intracranial internal carotid artery atherosclerosis. Skull and face: Calvarium and visualized facial bones appear intact, without suspicious lesions. Sinuses: Visualized sinuses and mastoids are clear. IMPRESSION: No acute intracranial pathology. Dictated by: Robinson Herrera M.D. on 10/25/2023 at 12:20 Approved by: Robinson Herrera M.D. on 10/25/2023 at 12:22
[2023-10-25 11:45] LABS: BUN Creatinine Ratio 16.2 (6-22); Blood Urea Nitrogen 11 mg/dL (7-17); Carbon Dioxide 29 mmol/L (22-32); Chloride 103 mmol/L (98-107); Estimated Glomerular Filt Rate > 60 mL/min (>60); Glucose 134 mg/dL (70-100); HEMOLYSIS < 15 (0-50); Lactate (Lactic Acid) 0.8 mmol/L (0.7-2.1); Potassium 3.7 mmol/L (3.4-5.1); Sodium 139 mmol/L (137-145)
[2023-10-25] MEDS: HYDROMORPHONE 0.5 MG INJ IV (14:53)
[2023-10-25] MEDS: diphenhydrAMINE 50 MG/ML VIAL IV (14:54)
[2023-10-25] MEDS: PROCHLORPERAZINE 10 MG/2 ML VIAL 5 MG IV (14:54)
--- NOTE | 2023-10-25 14:59 | DI.CT.S_ITS ---
PROCEDURE: CT ANGIO HEAD AND NECK INDICATIONS: recent trauma, right head/neck pain TECHNIQUE: After the administration of intravenous contrast, 1 mm thick sections acquired from the aortic arch through the [place] of [place]. 3-dimensional iehhviw-yqamanyvo-cituytkzzg (MIP) and/or volume rendering reformats were acquired of the central intracranial vasculature and neck separately. For radiation dose reduction, the following was used: automated exposure control, adjustment of mA and/or kV according to patient size. COMPARISON: [facility], CT, CT HEAD/BRAIN WO CON, 10/25/2023, 11:49. FINDINGS: Image quality: Diagnostic. BRAIN: Please refer to same day CT of the head. HEAD CT ANGIOGRAPHY: Anterior circulation: Intracranial internal carotid arteries are normal in size and flow. The flow within the paired anterior cerebral arteries is normal and symmetric. The flow within the middle cerebral arteries is normal and symmetric. The anterior communicating artery is seen. No aneurysms are seen. Posterior circulation: Loss opacification of the proximal V4 segment of the vertebral artery with reconstitution just after the PICA. Flow within the posterior cerebral arteries is normal and symmetric. No aneurysms are seen. NECK CT ANGIOGRAPHY: Carotid system: The great vessels demonstrate a conventional anatomy as they arise from the aortic arch. The origins of the common carotid arteries appear patent. The common carotid arteries demonstrate normal caliber and courses. The bifurcation regions are both widely patent. The internal carotid arteries demonstrate normal calibers and courses. Posterior circulation: The origins of the vertebral arteries both appear widely patent. The more superior extracranial portions of both vertebral arteries also demonstrate normal courses and calibers. They join to form a normal appearing basilar artery. Soft tissues: Visualized neck soft tissues demonstrate no suspicious abnormalities. Bones: No suspicious bony lesions. Visualized cervical spine appears normally aligned. IMPRESSION: There is loss of opacification of the right V4 vertebral artery just before enters the calvarium with reconstitution at the PICA takeoff. The vertebral artery distal to this is normal in caliber and forms with the left vertebral artery to form a normal basilar artery. This is of uncertain chronicity. There are a few collateral vessels noted within the right neck at the region of the loss of opacification, suggesting a more chronic etiology. Otherwise, no significant arterial abnormalities within the head or neck are identified. Any quantitative measurements of stenosis were performed using NASCET criteria. Dictated by: Alonso Castellanos M.D. on 10/25/2023 at 14:02 Approved by: Alonso Castellanos M.D. on 10/25/2023 at 14:09
== END 2023-10-25 15:51 | disposition home or self-care (01) ==
PROVIDERS: Emergency Medicine; Emergency Provider Emergency Medicine
DX: R51.9 Headache, unspecified (principal); M62.838 Other muscle spasm; M54.2 Cervicalgia
CPT/HCPCS: 36415; 70450; 70496; 70498; 72125; 80048; 83605; 85025; 96374; 96375; 99284; J0780; J1170; J1200; J1885; J3360; Q9967